=== PATIENT | male | born 1985 | race Caucasian/White ===

== ENCOUNTER 2021-12-15 10:42 | Emergency (ER) | payer OTHER, SELFPAY ==
--- NOTE | ~2021-12-15 | XR_ITS ---
EXAMINATION: XR abdomen/kub 1V DATE: 12/15/2021 11:51 INDICATION: Lower abdominal cramping TECHNIQUE: A supine view of the abdomen on 2 radiographs was obtained. COMPARISON: None. FINDINGS: Small amount of stool at the cecum. Otherwise relatively paucity of bowel gas throughout the abdomen and pelvis. No dilated gas-filled loops of bowel to suggest obstruction. A few small round calcificat ions in the pelvis most likely representing phleboliths. Right supra-acetabular bone island. Bilatera l decreased femoral head/neck offset which could predispose towards femoral acetabular impingement. IMPRESSION: 1. No dilated gas-filled bowel to suggest obstruction. Reviewed, dictated and finalized at location A.
--- NOTE | ~2021-12-15 | XR_ITS ---
This report was recreated 12/28/2021. Original report was signed by Mansoor Ling M.D. on 12/15/2021 12:29 CDT. EXAMINATION: XR abdomen/kub 1V DATE: 12/15/2021 11:51 INDICATION: Lower abdominal cramping TECHNIQUE: A supine view of the abdomen on 2 radiographs was obtained. COMPARISON: None. FINDINGS: Small amount of stool at the cecum. Otherwise relatively paucity of bowel gas throughout the abdomen and pelvis. No dilated gas-filled loops of bowel to suggest obstruction. A few small round calcifications in the pelvis most likely representing phleboliths. Right supra-acetabular bone island. Bilateral decreased femoral head/neck offset which could predispose towards femoral acetabular impingement. IMPRESSION: 1. No dilated gas-filled bowel to suggest obstruction. Reviewed, dictated and finalized at location A. Dictated By: Mansoor Ling MD 12/15/21 1227 Signed By: <Electronically signed by Mansoor Ling MD in [place]> 12/15/[address] [facility]
--- NOTE | 2021-12-15 10:49 | ED.ABDPAIN ---
HPI - Abdominal Pain General Chief Complaint: Abdominal Pain Stated Complaint: stomache Time Seen by Provider: 12/15/21 11:15 Source: patient and RN notes reviewed Mode of arrival: ambulatory Limitations: no limitations History of Present Illness HPI narrative: 36-year-old male presents with concern for persistent lower abdominal cramping and epigastric burning. Reports symptoms woke him up overnight around 1 AM. He denies nausea, vomiting, diarrhea. Reports he had a regular bowel movement yesterday morning. He denies dysuria, frequency, urgency, testicular pain, redness or swelling. He reports he took Pepto-Bismol twice, Tylenol without relief of symptoms. Reports pain was exacerbated when he drank water. Reports he tried to make himself vomit but he had no results. MD elicited complaint: abdominal pain Related Data Home Medications Medication Instructions Recorded Confirmed No Home Medications 12/15/21 12/15/21 Allergies Allergy/AdvReac Type Severity Reaction Status Date / Time No Known Allergies Allergy Unverified 12/15/21 11:05 Review of Systems Review of Systems: CONSTITUTIONAL: Denies malaise, chills, sweats, or fever. ENT: Denies rhinorrhea, congestion, sinus pain, otalgia or sore throat. CARDIOVASCULAR: Denies chest pain, palpitations, or edema. RESPIRATORY: Denies cough or dyspnea. GASTROINTESTINAL: Reports lower abdominal cramping, epigastric burning. Denies nausea, vomiting, diarrhea, bloody, or mucous stools. GENITOURINARY: Denies dysuria or hematuria. MUSCULOSKELETAL: Denies myalgia. NEUROLOGIC: Denies headache. All systems reviewed & are unremarkable except as noted in HPI and below PMFSH Comments At time of signature, agree with nursing past medical, surgical, social and family history. There is no relevant family history pertinent to the presenting complaint Exam Narrative: GENERAL: Well-appearing, well-nourished, and in no acute distress. HEAD: Normocephalic, atraumatic. EYES: PERRLA, conjunctivae clear, and EOMI. ENT: Nares clear, turbinates pink, no rhinorrhea or epistaxis. Mucous membranes moist. Oropharynx without edema, erythema, or lesions. Tonsils not enlarged and without exudate. NECK: Supple. No lymphadenopathy CHEST: Speaks in full sentences. No respiratory distress. HEART: Regular rate and rhythm. ABDOMEN: Soft, flat, nondistended. Mild left lower quadrant tenderness. No guarding, rebound tenderness, or rigid. No pulsatilla masses. Bowel sounds present in the right lower, right upper, left upper, diminished bowel sounds in the left lower quadrant. No organomegaly. Negative Jacobson?s sign. No periumbilical tenderness. No Supra public tenderness or distension SKIN: Warm, dry, no rash. NEURO: Alert and oriented x3. PSYCH: Normal mood and affect Course Course Emergency Course: Discussed with patient x-ray findings, urinalysis findings. Discussed limited diagnostic capability at [facility]. Discussed option for transfer to emergency room for further evaluation. Patient reports he would rather go home, try to have a bowel movement and present to the emergency room if his symptoms worsen or do not improve over the next 48 hours. Patient is aware of, understands and agrees to treatment plan. Anticipatory guidance given. Patient agrees to follow-up as directed and is aware of reasons to seek care at the emergency department. Portions of this record may have been created with voice recognition software [facility] Reevaluation(s) Reevaluation #1: Patient reports some improvement in his epigastric pain after GI cocktail. Date: 12/15/21 Time: 12:40 Vital Signs Vital signs: Reviewed. Reviewed. Pt has been instructed to follow up with his primary care provider within the next week regarding his elevated blood pressure today. MDM - Abdominal Pain MDM Narrative Medical decision making narrative: No evidence of pancreatitis, AAA, cholangitis, mesenteric is
[2021-12-15 10:55] VITALS: BP 141/77; PULSE 77; RESP 16; TEMP 36.7; O2SAT 100
[2021-12-15] MEDS: LIDOCAINE HCL 2% VISC SOLN 15 ML UDC PO (12:32)
[2021-12-15] MEDS: MAG HYDROX/AL HYDROX/SIMETH 30 ML UDC PO (12:32)
== END 2021-12-15 12:53 | disposition home or self-care (01) ==
PROVIDERS: Emergency Provider Nurse Practitioner
DX: R10.30 Lower abdominal pain, unspecified (principal)
CPT/HCPCS: 74018; 81003; 99203; A9270; G0463

== ENCOUNTER 2022-11-06 08:18 | Emergency (ER) | payer OTHER, SELFPAY ==
[2022-11-06 08:27] VITALS: BP 132/89; PULSE 54; RESP 16; TEMP 36.8; O2SAT 99
--- NOTE | 2022-11-06 08:36 | ED.SKABFB ---
HPI - Skin/Abscess/Foreign Bdy General Chief complaint: Skin/Abscess/Foreign Body Stated complaint: RASH Time Seen by Provider: 11/06/22 08:36 Source: patient, RN notes reviewed and old records reviewed Mode of arrival: ambulatory Limitations: no limitations History of Present Illness HPI narrative: 37 year old male presents to the [facility] care with complaints of rash to the right posterior upper back along shoulder blade and one small red bump to right axilla region for the past 1.5 weeks. Patient reports rash to back william and stings and rash in axilla is itchy. Patient reports that initially described rash on back as pimples with no blister type of formations. Both areas are red raised in appearance with no drainage. Patient reports that he has not used any new soaps,lotions, new foods, medications or any new laundry detergents. Patient does report recent trip to [place] on the beach. Patient has used some triamcinolone ointment to area with no improvement stated. MD complaint: rash Onset (ago): week(s) (1.5 weeks) Severity scale (1-10): 5 Quality: burning and pruritic Treatments prior to arrival: other (triamcinolone ointment) Related Data Allergies Allergy/AdvReac Type Severity Reaction Status Date / Time No Known Allergies Allergy Verified 11/06/22 08:34 Review of Systems Review of Systems: CONSTITUTIONAL: Denies fever, chills, or sweats. CARDIOVASCULAR: Denies chest pain, palpitations, or edema. RESPIRATORY: Denies cough or dyspnea. SKIN: Reports rash to right shoulder and one small area right axilla is itchy MUSCULOSKELETAL: Denies joint pain or myalgia. NEUROLOGIC: Denies headache, numbness, or weakness. All systems reviewed & are unremarkable except as noted in HPI and below PMFSH Social History Social History (Updated 11/06/22 @ 22:14 by Jacqueline Marc NP) Smoking status: Never smoker Alcohol intake: current Alcohol use details: social Substance use: never Substance use type: does not use Living arrangements: with family Gender identity (if verbalized by the patient): Male Comments At time of signature, agree with nursing past medical, surgical, social and family history. There is no relevant family history pertinent to the presenting complaint Exam Narrative: GENERAL: Well-appearing, well-nourished, and in no acute distress. HEAD: Normocephalic, atraumatic. EYES: PERRLA, conjunctivae clear, and EOMI. ENT: Mucous membranes moist. Oropharynx without edema, erythema or lesions. NECK: Supple. No lymphadenopathy CHEST: Clear to auscultation. No respiratory distress.SAO2 99% on room air HEART: Regular rate and rhythm regular SKIN: Warm, dry.? Patch of red raised rash circular with no blister type of formation or drainage to right upper shoulder blade area,red bump area in right axilla, no drainage. NEURO:? Alert and oriented x3. PSYCH: Normal mood and affect Course Course Emergency Course: Patient is aware of diagnosis, understands and agrees to treatment plan.? Anticipatory guidance given.? Patient agrees to follow-up as directed and is aware of reasons to seek care at the emergency department. Portions of this record may have been created with voice recognition software Level of Care: Express Care Visit Vital Signs Vital signs: Vital Signs Temperature 36.8 C 11/06/22 08:27 Pulse Rate 54 L 11/06/22 08:27 Respiratory Rate 16 11/06/22 08:27 Blood Pressure 132/89 11/06/22 08:27 Pulse Oximetry 99 11/06/22 08:27 Temperature 36.8 C 11/06/22 08:27 Pulse Rate 54 L 11/06/22 08:27 Respiratory Rate 16 11/06/22 08:27 Blood Pressure 132/89 11/06/22 08:27 Pulse Oximetry 99 11/06/22 08:27 Oxygen Delivery Room Air 11/06/22 08:29 Reviewed MDM - Skin/Abscess/Foreign Bdy MDM Narrative Medical decision making narrative: Does not appear at this time to be erythema multiforme, bullous, SJS, TEN; no evidence at this time to suggest
== END 2022-11-06 08:55 | disposition home or self-care (01) ==
PROVIDERS: Emergency Provider Registered Nurse; PCP Family Medicine
DX: L25.9 Unspecified contact dermatitis, unspecified cause (principal)
CPT/HCPCS: 99213; G0463

== ENCOUNTER 2023-03-01 17:43 | Emergency (ER) | payer OTHER, SELFPAY ==
--- NOTE | 2023-03-01 17:48 | ED.URI ---
HPI - URI/Sore Throat General Chief Complaint: Upper Respiratory Infection Stated Complaint: Sore Throat, Bodyaches, Runny Nose Time Seen by Provider: 03/01/23 18:00 Source: patient Mode of arrival: ambulatory Limitations: no limitations History of Present Illness HPI Narrative: Naseem is a 38-year-old male patient presenting to the clinic today with complaints of sore throat, body aches, runny nose, cough, and chills. He reports that the symptoms started morning. He was in [place] at the time this symptoms presented. Came home on Friday. MD elicited complaint: sore throat and nasal congestion Related Data Home Medications Medication Instructions Recorded Confirmed No Home Medications 03/01/23 03/01/23 Allergies Allergy/AdvReac Type Severity Reaction Status Date / Time No Known Allergies Allergy Verified 03/01/23 17:54 Review of Systems Review of Systems: Pertinent positives per HPI. Patient denies any rash, headache, visual changes, dizziness, shortness of breath, chest pain, palpitations, nausea, vomiting, diarrhea, constipation, abdominal pain, or any urinary issues. [facility] Social History Social History (Updated 11/06/22 @ 22:14 by Jacqueline Marc NP) Smoking status: Never smoker Alcohol intake: current Alcohol use details: social Substance use: never Substance use type: does not use Living arrangements: with family Gender identity (if verbalized by the patient): Male Comments At the time of my signature, I reviewed and agree with the nursing past medical, surgical, social, and family history. There is no relevant family history pertinent to the patient complaint. Exam Narrative: General: Well-developed, well nourished, in no apparent distress Head: Normocephalic, atraumatic Eyes: Pupils equally round and reactive to light bilaterally, EOM intact, sclera and conjunctive clear, no discharge, lids normal Ears: TMs intact and clear, ear canals clear, no drainage, grossly hearing normal. Nose: Nares patent, clear discharge, no inflammation, no sinus tenderness. Mouth: Oral pharynx red without lesions or masses, good dentition, MMM. Postnasal drip Neck: Supple, trachea midline, no enlargement of anterior or posterior cervical nodes, no thyroid masses or goiter palpable. Cardio: Regular rate and rhythm, s1 and s2 normal, no murmur appreciated. Resp: Clear to auscultation bilaterally, no rhonchi, rales, wheezing or rubs Course Course Emergency Course: Portions of this record may have been created with voice recognition software. Level of Care: Express Care Visit Vital Signs Vital signs: Vital signs reviewed MDM - URI/Sore Throat MDM Narrative Medical decision making narrative: At the time of visit patient is resting comfortably on exam table. COVID, flu, and strep test were performed and the COVID testing was positive. Strep and flu were negative. We will send strep for culture. Supportive measures were discussed with the patient he voiced understanding discharge instructions agrees to treatment plan. Return ER precautions were reviewed with the patient he voiced understanding. Differential Diagnosis Differential diagnosis: Likely upper respiratory infection, otitis media, sinusitis, viral infection, bronchitis, influenza, pharyngitis and other (COVID) Discharge Plan Discharge Clinical Impression: COVID-19 Patient Disposition: Home, Self-Care Condition: Stable Instructions: Antibiotic Form, COVID-19 (Coronavirus Disease 2019) (ED), How to Recover from COVID-19 at Home (ED) Additional Instructions: Discussed patient's elevated blood pressure at the time of visit and recommend follow-up with primary care physician to have this reevaluated within the next week if symptoms persist. COVID test was positive Strep and influenza testing was negative. We will send strep for culture if this comes back positive we will contact him place you on antibi
[2023-03-01 17:59] VITALS: BP 164/114; PULSE 73; RESP 16; TEMP 36; O2SAT 99
== END 2023-03-01 18:13 | disposition home or self-care (01) ==
PROVIDERS: Emergency Provider Nurse Practitioner Family; PCP Family Medicine
DX: U07.1 COVID-19 (principal)
CPT/HCPCS: 87081; 87426; 87804; 87880; 99213; C9803; G0463